=== PATIENT | female | born 1995 | race African-American/Black ===

== ENCOUNTER 2017-12-17 11:55 | Emergency (ER) | payer SELFPAY ==
[~2017-12-17] VITALS: Ht 160 cm; Wt 77.1 kg
[2017-12-17 12:00] VITALS: BP 111/70
[2017-12-17 12:29] LABS: Urine Bacteria FEW /hpf (None Seen); Urine Blood Negative /uL (Negative); Urine Mucus FEW (None Seen); Urine Specific Gravity 1.022 (1.001-1.035); Urine WBC 1 /hpf (0 - 5)
[2017-12-17 13:06] LABS: Basophils # (auto) 0 uL; Basophils % (auto) 0.8 % (0.0-2.0); Eosinophils # (auto) 0 uL; Eosinophils % (auto) 0.1 % (0.0-7.0); Hematocrit 38.7 % (36.0-46.0); Hemoglobin 12.6 g/dL (12.2-16.2); Lymphocytes # (auto) 0.8 uL; Lymphocytes % (auto) 16.6 % (10.0-50.0); Mean Corpuscular Hemoglobin 27.7 pg (28.0-32.0); Mean Corpuscular Hgb Conc. 32.4 g/dL (32.0-36.0); Mean Corpuscular Volume 85.4 fL (80.0-100.0); Monocytes # (auto) 0.2 uL; Monocytes % (auto) 4.6 % (0.0-12.0); Neutrophils # (auto) 3.9 uL; Neutrophils % (auto) 77.9 % (37.0-80.0); Nucleated Red Blood Cells % 0.1 %; Platelet Count (auto) 263 10^3/uL (140-450); Red Blood Cells 4.53 10^6/uL (4.0-5.20); Red Cell Distribution Width 16.5 % (11.8-14.3)
[2017-12-17 13:27] LABS: Albumin 3.8 g/dL (3.4-5.0); BUN/Creatinine Ratio 7.4; Calcium 8.8 mg/dL (8.5-10.1); Potassium 4.2 mmol/L (3.5-5.1)
[2017-12-17 13:29] LABS: Bilirubin, Total 0.5 mg/dL (0.2-1.0); Total Protein 8.3 g/dL (6.4-8.2)
== END 2017-12-17 16:43 | disposition left against medical advice (07) ==
LOC: ER 11:55
DX: R10.13 Epigastric pain (principal); Z53.29 Procedure and treatment not carried out because of patient's decision for other reasons
CPT/HCPCS: 36415; 80053; 81001; 81025; 85025

== ENCOUNTER 2018-01-16 20:25 | Emergency (ER) | payer SELFPAY ==
[~2018-01-16] VITALS: Ht 160 cm; Wt 77.1 kg
[2018-01-16 21:44] LABS: Basophils # (auto) 0 uL; Basophils % (auto) 0.7 % (0.0-2.0); Eosinophils # (auto) 0 uL; Eosinophils % (auto) 0.7 % (0.0-7.0); Hematocrit 39.1 % (36.0-46.0); Hemoglobin 13.1 g/dL (12.2-16.2); Lymphocytes # (auto) 1.6 uL; Lymphocytes % (auto) 23.6 % (10.0-50.0); Mean Corpuscular Hemoglobin 28.5 pg (28.0-32.0); Mean Corpuscular Hgb Conc. 33.4 g/dL (32.0-36.0); Mean Corpuscular Volume 85.4 fL (80.0-100.0); Monocytes # (auto) 0.7 uL; Monocytes % (auto) 9.8 % (0.0-12.0); Neutrophils # (auto) 4.4 uL; Neutrophils % (auto) 65.2 % (37.0-80.0); Nucleated Red Blood Cells % 0.1 %; Platelet Count (auto) 224 10^3/uL (140-450); Red Blood Cells 4.58 10^6/uL (4.0-5.20); Red Cell Distribution Width 15.4 % (11.8-14.3); White Blood Cell 6.8 10^3/uL (4.4-10.8)
[2018-01-16 21:48] LABS: Urine Bacteria NONE SEEN /hpf (None Seen); Urine Blood Negative /uL (Negative); Urine Mucus FEW (None Seen); Urine Specific Gravity 1.036 (1.001-1.035); Urine WBC 3 /hpf (0 - 5)
[2018-01-16 21:59] LABS: Amphetamine Screen, Urine NEGATIVE (NEGATIVE); Barbiturate Scree,Urine NEGATIVE (NEGATIVE); Benzodiazephine Screen, Urine NEGATIVE (NEGATIVE); Cannabinoid Screen, Urine POSITIVE (NEGATIVE); Cocaine Screen, Urine NEGATIVE (NEGATIVE); Opiate Scree,Urine NEGATIVE (NEGATIVE); Phencyclidine Screen, Urine NEGATIVE (NEGATIVE)
[2018-01-16 22:28] LABS: Albumin 4.2 g/dL (3.4-5.0); BUN/Creatinine Ratio 17.4; Bilirubin, Total 0.7 mg/dL (0.2-1.0); Calcium 9.2 mg/dL (8.5-10.1); Magnesium 2.3 mg/dL (1.6-2.6); Potassium 3.4 mmol/L (3.5-5.1); Total Protein 8.9 g/dL (6.4-8.2)
[2018-01-16] MEDS ORDERED: ONDANSETRON HCL 4 MG/2 ML VIAL ONE (23:41)
[2018-01-17] MEDS ORDERED: SODIUM CHLORIDE 0.9% 1,000 ML IV ONE (00:30)
[2018-01-17] MEDS ORDERED: cefTRIAXone 1GM/10ml IVPUSH 10 ML IV ONE (03:00)
[2018-01-17] MEDS ORDERED: metroNIDAZOLE 500 MG TAB PO ONE (03:00)
[2018-01-17 03:08] VITALS: BP 109/60
== END 2018-01-17 03:10 | disposition home or self-care (01) ==
LOC: ER 20:25
DX: K52.9 Noninfective gastroenteritis and colitis, unspecified (principal); F17.210 Nicotine dependence, cigarettes, uncomplicated
CPT/HCPCS: 36415; 74176; 80053; 80307; 81001; 81025; 83690; 83735; 85025; 99285; J2405; J7030

== ENCOUNTER 2019-05-02 12:47 | Emergency (ER) | payer SELFPAY ==
[~2019-05-02] VITALS: Ht 160 cm; Wt 68.0 kg
[2019-05-02 12:57] VITALS: BP 123/75
== END 2019-05-02 15:06 | disposition left against medical advice (07) ==
LOC: ER 12:47
DX: R11.10 Vomiting, unspecified (principal); R19.7 Diarrhea, unspecified; Z53.21 Procedure and treatment not carried out due to patient leaving prior to being seen by health care provider

== ENCOUNTER 2019-05-03 14:07 | Emergency (ER) | payer SELFPAY ==
[~2019-05-03] VITALS: Ht 160 cm; Wt 68.0 kg
[2019-05-03 15:49] LABS: Basophils # (auto) 0 uL; Basophils % (auto) 0.7 % (0.0-2.0); Eosinophils # (auto) 0 uL; Eosinophils % (auto) 0.5 % (0.0-7.0); Hematocrit 39.8 % (36.0-46.0); Hemoglobin 13.4 g/dL (12.2-16.2); Lymphocytes # (auto) 1.1 uL; Mean Corpuscular Hemoglobin 29.9 pg (28.0-32.0); Mean Corpuscular Hgb Conc. 33.6 g/dL (32.0-36.0); Mean Corpuscular Volume 88.8 fL (80.0-100.0); Monocytes # (auto) 0.2 uL; Neutrophils # (auto) 1.2 uL; Neutrophils % (auto) 46.8 % (37.0-80.0); Nucleated Red Blood Cells % 0.1 %; Platelet Count (auto) 173 10^3/uL (140-450); Red Blood Cells 4.48 10^6/uL (4.0-5.20); Red Cell Distribution Width 14.9 % (11.8-14.3); White Blood Cell 2.7 10^3/uL (4.4-10.8)
[2019-05-03 15:51] LABS: Urine Bacteria NONE SEEN /hpf (None Seen); Urine Blood 2+ /uL (Negative); Urine Mucus MODERATE (None Seen); Urine Specific Gravity 1.025 (1.001-1.035); Urine WBC 3 /hpf (0 - 5)
[2019-05-03 16:04] LABS: Albumin 3.8 g/dL (3.4-5.0); BUN/Creatinine Ratio 13.5; Calcium 8.8 mg/dL (8.5-10.1); Potassium 3.4 mmol/L (3.5-5.1)
[2019-05-03 16:07] LABS: Bilirubin, Total 0.5 mg/dL (0.2-1.0); Total Protein 7.9 g/dL (6.4-8.2)
[2019-05-03] MEDS ORDERED: ONDANSETRON ODT 4 MG TAB PO ONE ×2 (17:23→17:30)
[2019-05-03 17:33] VITALS: BP 118/67
== END 2019-05-03 18:15 | disposition home or self-care (01) ==
LOC: ER 14:07
DX: A08.4 Viral intestinal infection, unspecified (principal); F17.210 Nicotine dependence, cigarettes, uncomplicated
CPT/HCPCS: 36415; 74176; 80053; 81001; 81025; 83690; 85025; 99284; Q0162

== ENCOUNTER 2020-11-23 14:49 | Emergency (ER) | payer MEDICAID, OTHER ==
[~2020-11-23] VITALS: Ht 160 cm; Wt 69.4 kg
[2020-11-23 16:36] VITALS: BP 111/67
[2020-11-23] MEDS ORDERED: IBUPROFEN 800 MG TAB PO ONE (16:45)
== END 2020-11-23 17:00 | disposition home or self-care (01) ==
LOC: ER 14:49
DX: S16.1XXA Strain of muscle, fascia and tendon at neck level, initial encounter (principal); S00.83XA Contusion of other part of head, initial encounter; F17.210 Nicotine dependence, cigarettes, uncomplicated; V43.62XA Car passenger injured in collision with other type car in traffic accident, initial encounter; Y93.89 Activity, other specified; Y92.488 Other paved roadways as the place of occurrence of the external cause; Y99.8 Other external cause status

== ENCOUNTER 2023-04-30 15:28 | Inpatient (IN) | payer MEDICAID, OTHER ==
[~2023-04-30] VITALS: Ht 160 cm; Wt 59.1 kg
[2023-04-30 16:34] LABS: Hematocrit 42.2 % (36.0-46.0); Hemoglobin 14.4 g/dL (12.2-16.2); Mean Corpuscular Hemoglobin 31.2 pg (28.0-32.0); Mean Corpuscular Hgb Conc. 34.2 g/dL (32.0-36.0); Mean Corpuscular Volume 91.4 fL (80.0-100.0); Red Blood Cells 4.62 10^6/uL (4.0-5.20); Red Cell Distribution Width 13.3 % (11.8-14.3)
[2023-04-30 16:51] LABS: Alanine Aminotransferase 30 U/L (7-40); Alkaline Phosphatase 97 U/L (46-116); Anion Gap 12 (5-15); Aspartate Aminotransferase 45 U/L (13-40); BUN/Creatinine Ratio 10.1 (10.0-20.0); Bilirubin, Total 0.5 mg/dL (0.2-1.0); Blood Urea Nitrogen 9 mg/dL (9-23); Calcium 9.5 mg/dL (8.7-10.4); Carbon Dioxide 26 mmol/L (20-30); Chloride 98 mmol/L (98-107); Glucose 86 mg/dL (74-106); Lipase 37 U/L (12-53); Potassium 3.1 mmol/L (3.5-5.1); Sodium 136 mmol/L (136-145); Total Protein 8.5 g/dL (5.7-8.2)
[2023-04-30 16:55] LABS: White Blood Cell 1.7 10^3/uL (4.4-10.8)
[2023-04-30 16:59] LABS: Band Neutrophils % (manual) 0; Basophils % (manual) 0 (0.0-2.0); Blast Cells 0; Eosinophils % (manual) 0 (0-7); Metamyelocytes % 0; Myelocytes % 0; Promyelocytes % 0; Reactive Lymphocytes 0
[2023-04-30 17:22] LABS: Lymphocytes % (manual) 23 (10.0-50.0); Monocytes % (manual) 10 (0-12)
[2023-04-30 17:23] LABS: Platelet Estimate Decreased
[2023-04-30 18:21] LABS: Rapid Influenza A Negative (Negative); Rapid Influenza B Negative (Negative)
[2023-04-30 18:22] LABS: COVID19 ANTIGEN SOFIA FIA NEGATIVE (NEGATIVE)
[2023-04-30 19:27] LABS: Urine Bacteria NONE SEEN /hpf (None Seen); Urine Blood 3+ /uL (Negative); Urine Clarity HAZY (Clear); Urine Mucus FEW (None Seen); Urine Protein, UAD 2+ (Negative); Urine Specific Gravity 1.024 (1.001-1.035); Urine WBC 118 /hpf (0 - 5)
[2023-04-30 19:31] LABS: Urine Color BROWN (Yellow)
[2023-04-30] MEDS ORDERED: ACETAMINOPHEN 325 MG TAB PO PRN (21:15)
[2023-04-30] MEDS ORDERED: POTASSIUM CHL 20 Meq TABLET PO ONE (21:15)
[2023-04-30] MEDS ORDERED: ONDANSETRON HCL 4 MG/2 ML VIAL IV PRN (21:15)
[2023-04-30] MEDS ORDERED: TEMAZEPAM 15 MG CAP PO PRN (21:15)
[2023-04-30] MEDS ORDERED: cefTRIAXone 1GM/50ML D5W 50 ML IV ONE (21:15)
[2023-05-01] VITALS (10 sets, daily range): BP systolic 94–157; BP diastolic 57–98; PULSE 77–95; RESP 16–22; TEMP 97.7–99.2; O2SAT 94–99
[2023-05-01] MEDS ORDERED: HYDROcodone-ACET 5/325MG TAB PO ONE (02:45)
[2023-05-01] MEDS ORDERED: ALBUTEROL SULF 2.5 MG/0.5ML(0.5%) NEB SOLN NEB PRN (06:45)
[2023-05-01 07:07] LABS: Red Cell Distribution Width 13.2 % (11.8-14.3)
[2023-05-01 07:11] LABS: Hematocrit 37.2 % (36.0-46.0); Hemoglobin 12.7 g/dL (12.2-16.2); Mean Corpuscular Hemoglobin 31.1 pg (28.0-32.0); Mean Corpuscular Hgb Conc. 34.2 g/dL (32.0-36.0); Mean Corpuscular Volume 90.8 fL (80.0-100.0)
[2023-05-01 07:22] LABS: White Blood Cell 1.9 10^3/uL (4.4-10.8)
[2023-05-01 07:23] LABS: Basophils % (manual) 0 (0.0-2.0); Blast Cells 0; Eosinophils % (manual) 0 (0-7); Metamyelocytes % 0; Myelocytes % 0; Promyelocytes % 0; Reactive Lymphocytes 0
[2023-05-01 07:31] LABS: Chloride 99 mmol/L (98-107); Potassium 3.3 mmol/L (3.5-5.1); Sodium 135 mmol/L (136-145)
[2023-05-01 07:32] LABS: Anion Gap 12 (5-15); Calcium 9.1 mg/dL (8.5-10.1); Carbon Dioxide 24 mmol/L (20-30)
[2023-05-01 07:37] LABS: BUN/Creatinine Ratio 13.9 (10.0-20.0); Blood Urea Nitrogen 10 mg/dL (9-23); Glucose 78 mg/dL (74-106)
[2023-05-01 09:26] LABS: Thyroid Stimulating Hormone 1.54 uIU/mL (0.55-4.78)
[2023-05-01 10:12] LABS: Band Neutrophils % (manual) 3; Lymphocytes % (manual) 32 (10.0-50.0); Monocytes % (manual) 14 (0-12)
[2023-05-01 10:13] LABS: Platelet Estimate Decreased
[2023-05-01] MEDS: cefTRIAXone 1GM/50ML D5W 50 ML IV SCH (10:24)
[2023-05-01] MEDS ORDERED: POTASSIUM EFFERVESENT TAB 25 MEQ PO ONE (12:00)
[2023-05-01] MEDS ORDERED: DOXYCYCLINE 100 MG TAB/CAP PO ONE (13:15)
[2023-05-01] MEDS: guaiFENesin-DM 100/10mg/5ml SYR PO PRN ×2 (18:46→22:32)
[2023-05-01] MEDS ORDERED: DOXYCYCLINE 100 MG TAB/CAP PO SCH (22:00)
[2023-05-02 05:00] VITALS: BP 105/65; PULSE 75; RESP 16; TEMP 98.5; O2SAT 98
[2023-05-02 06:23] LABS: Mean Corpuscular Volume 91.1 fL (80.0-100.0)
[2023-05-02 06:25] LABS: Alanine Aminotransferase 24 U/L (7-40); Albumin 4.2 g/dL (3.2-4.8); Alkaline Phosphatase 76 U/L (46-116); Anion Gap 9 (5-15); Aspartate Aminotransferase 33 U/L (13-40); BUN/Creatinine Ratio 9.4 (10.0-20.0); Blood Urea Nitrogen 6 mg/dL (9-23); CRP High Sensitivity 0.61 mg/dL (<1.0); Calcium 8.8 mg/dL (8.5-10.1); Carbon Dioxide 27 mmol/L (20-30); Chloride 101 mmol/L (98-107); Glucose 85 mg/dL (74-106); Hematocrit 36.6 % (36.0-46.0); Hemoglobin 12.3 g/dL (12.2-16.2); Mean Corpuscular Hemoglobin 30.7 pg (28.0-32.0); Mean Corpuscular Hgb Conc. 33.7 g/dL (32.0-36.0); Potassium 2.9 mmol/L (3.5-5.1); Red Blood Cells 4.02 10^6/uL (4.0-5.20); Red Cell Distribution Width 13.1 % (11.8-14.3); Sodium 137 mmol/L (136-145)
[2023-05-02 06:26] LABS: Bilirubin, Total 0.4 mg/dL (0.2-1.0); Total Protein 6.9 g/dL (5.7-8.2)
[2023-05-02 06:53] LABS: White Blood Cell 1.6 10^3/uL (4.4-10.8)
[2023-05-02 06:54] LABS: Basophils % (manual) 0 (0.0-2.0); Blast Cells 0; Eosinophils % (manual) 0 (0-7); Metamyelocytes % 0; Myelocytes % 0; Promyelocytes % 0
[2023-05-02] MEDS ORDERED: POTASSIUM CHLORIDE 60 MEQ, LIDOCAINE 1% (LOCAL ANESTH.) 6 ML in SODIUM CHL 0.9% 500 ML IV ONE (07:00)
[2023-05-02 08:00] VITALS: PULSE 78; RESP 18; O2SAT 98
[2023-05-02 08:00] LABS: Magnesium 2.3 mg/dL (1.6-2.6)
[2023-05-02] MEDS: guaiFENesin-DM 100/10mg/5ml SYR PO PRN ×2 (08:43→13:28)
[2023-05-02] MEDS: cefTRIAXone 1GM/50ML D5W 50 ML IV SCH (08:43)
[2023-05-02 08:51] VITALS: BP 106/59; PULSE 78; RESP 18; TEMP 98.5; O2SAT 98
[2023-05-02 08:57] LABS: Band Neutrophils % (manual) 1; Lymphocytes % (manual) 61 (10.0-50.0); Monocytes % (manual) 25 (0-12); Reactive Lymphocytes 2
[2023-05-02 08:58] LABS: Platelet Estimate Decreased; RBC Morphology Normal
[2023-05-02 09:21] LABS: Hepatitis B Surface Antibody Negative (Negative)
[2023-05-02 09:27] LABS: Hepatitis B Surface Antigen Negative (Negative)
[2023-05-02 09:28] LABS: Hepatitis B Surface Antigen Negative (Negative)
[2023-05-02 09:48] LABS: Hepatitis C Antibody Negative (Negative)
[2023-05-02 12:54] VITALS: BP 109/73; PULSE 78; RESP 20; TEMP 98.2; O2SAT 100
[2023-05-02 14:06] LABS: Anti-Nuclear Antibody Direct Negative (Negative)
[2023-05-02 15:07] VITALS: BP 106/59; PULSE 78; RESP 18; TEMP 36.8; O2SAT 98
[2023-05-02 16:53] VITALS: BP 110/72; PULSE 92; RESP 18; TEMP 98.4; O2SAT 97
[2023-05-03 18:06] LABS: CCP IgG/IgA Antibody 0 units (0-19)
== END 2023-05-02 16:23 | disposition home or self-care (01) | DRG 145 ==
LOC: ER 15:28 → OVERFLOW 21:16 → EAST 05-01 02:15
PROVIDERS: ADMIT Internal Medicine Pulmonary Disease; ATTEND Internal Medicine Pulmonary Disease
DX: J40 Bronchitis, not specified as acute or chronic (principal); D69.6 Thrombocytopenia, unspecified; B34.9 Viral infection, unspecified; D70.9 Neutropenia, unspecified; Z20.822 Contact with and (suspected) exposure to COVID-19; E87.6 Hypokalemia; F17.210 Nicotine dependence, cigarettes, uncomplicated; Z82.49 Family history of ischemic heart disease and other diseases of the circulatory system; Z83.3 Family history of diabetes mellitus; N30.00 Acute cystitis without hematuria
CPT/HCPCS: 36415; 71045; 80048; 80053; 81001; 81025; 82607; 82746; 83605; 83615; 83690; 83735; 84132; 84436; 84443; 85007; 85027; 86038; 86141; 86200; 86703; 86706; 86803; 87040; 87070; 87086; 87205; 87340; 87426; 87804; G0378; J2001; J2405

== ENCOUNTER 2024-12-25 12:36 | Emergency (ER) | payer MEDICAID ==
[~2024-12-25] VITALS: Ht 162.6 cm; Wt 63.0 kg
[~2024-12-25 12:36] MED LIST: AZITTAB PO; BUDE1AER15 IN; METH4PAK PO
[2024-12-25] MEDS ORDERED: IBUP-1456 PO (13:07)
[2024-12-25 13:22] VITALS: BP 121/63; PULSE 95; RESP 20; TEMP 98.4; O2SAT 98
--- NOTE | 2024-12-25 13:23 | ED.PDOC ---
Musculoskeletal HPI Comments A 29 YEAR OLD FEMALE PRESENTS TO THE ED WITH COMPLAINT OF LEFT ANKLE PAIN. PATIENT REPORTS CONFIRMED LEFT FIBULA FRACTURE BY X RAY DONE IN [place] S/P BROTHER IN LAW FALLING ONTO HER LEFT ANKLE ON 11/19/24. PATIENT REPORTS SHE WAS PLACED ON A BOOT AND RX NAPROXEN WITH AFTER CARE INSTRUCTIONS SUCH ELEVATING LEG TO REDUCE PAIN, HOWEVER SHE DENIES ANY RELIEF. PATIENT HAS AN ORTHOPEDIC APPOINTMENT ON 12/30/24 BUT PRESENTS TODAY DUE TO CONCERNS OF BRUISING TO THE INNER LEFT HEEL. PATIENT HAS NO REDNESS TO FRACTURE REGION. 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 PATIENT WILL FOLLOW UP WITH ORTHOPEDIC ON APPOINTED DATE TO EXTEND WORK NOTE. PATIENT DENIES FEVER, CHILLS, SHORTNESS OF BREATH, CHEST PAIN, ABDOMINAL PAIN, NAUSEA, VOMITING, HEADACHE, OR OTHER COMPLAINTS. NO OTHER SYMPTOMS OR MODIFYING FACTORS AT THIS TIME. PATIENT IS ALERT, ORIENTED X 4, AND HAS STEADY GAIT- HAS A BOOT PLACED TO LEFT LOWER LEG AND IS ABLE TO APPLY MINIMAL PRESSURE TO FOOT. Chief Complaint: Lower Extremity Time Seen by MD: 13:00 Primary Care Provider: DENIES Reviewed Notes: Nurses Notes, Medications, Allergies Allergies: Coded Allergies: NO KNOWN ALLERGIES (Unverified , 05/03/19) Home Meds Active Scripts Ibuprofen (Ibuprofen) 800 Mg Tab, 1 TAB PO TID, #30 TAB Prov:HA MCKEON 12/25/24 Azithromycin (Zithromax Z-Dick) 250 Mg Tab, 250 MG PO BID for 7 Days, #14 TAB Prov:ALEXANDRIA LOMELI 10/21/23 Methylprednisolone (Medrol Dosepak) 4 Mg Dick, 4 MG PO UD, #21 TAB UAD Prov:JAGJIT MARTINES ASSISTANT MANAGER 10/21/23 Budesonide-Formoterol Fumarate (Breyna 80-4.5 Mcg/Act) 1 Aer Aer, 1 AER IN BID for 30 Days, #1 AER Prov:JAGJIT MARTINES ASSISTANT MANAGER 10/21/23 Information Source: Patient Mode of Arrival: Ambulatory Location: Left Extremity Location: Ankle Timing: Weeks Severity: Moderate Mechanism: Blunt Trauma Onset of Symptoms: After Trauma Symptoms: Pain Associated signs and symptoms: Ankle pain Past Medical History PAST MEDICAL HISTORY: Denies Surgical History: Denies all surgeries EXPORT SALES ASSISTANT History: Denies all EXPORT SALES ASSISTANT Hx Family History Family History: Reviewed,noncontributory to illness Social History Smoker: Cigarettes Alcohol: Denies ETOH Use Drugs: Denies Drug Use Lives In: Home Constitutional: denies: chills, diaphoresis, fatigue, fever, malaise, sweats, weakness, others EENTM: denies: blurred vision, double vision, ear bleeding, ear discharge, ear drainage, ear pain, ear ringing, eye pain, eye redness, hearing loss, mouth pain, mouth swelling, nasal discharge, nose bleeding, nose congestion, nose pain, photophobia, tearing, throat pain, throat swelling, voice changes, others Respiratory: denies: cough, hemoptysis, orthopnea, SOB at rest, shortness of breath, SOB with excertion, stridor, wheezing, others Cardiovascular: denies: chest pain, dizzy spells, diaphoresis, Dyspnea on exertion, edema, irregular heart beat, left arm pain, lightheadedness, palpitations, PND, syncope, others Gastrointestinal: denies: abdomen distended, abdominal pain, blood streaked bowels, constipated, diarrhea, dysphagia, difficulty swallowing, hematemesis, melena, nausea, poor appetite, poor fluid intake, rectal bleeding, rectal pain, vomiting, others Genitourinary: denies: abnormal vagina bleeding, burning, dyspareunia, dysuria, flank pain, frequency, hematuria, incontinence, pain, , vagina discharge, urgency, others Neurological: denies: dizziness, fainting, headache, left sided numbness, left sided weakness, numbness, paresthesia, pre-existing deficit, right sided numbness, right sided weakness, seizure, speech problems, tingling, tremors, weakness, others Musculoskeletal: reports: joint pain, others (LEFT ANKLE PAIN WITH SWELLING ); denies: back pain, gout, joint swelling, muscle pain, muscle stiffness, neck pain Integumetry: denies: bruises, change in color, change in hair/nails, dryness, laceration, lesions, lumps, rash, wounds, others Allergic/Immunocompromised: denies: Difficulty Healing, Frequent Infections, Hives, Itching, others Hematologic/Lymphatic: denies: anemia, blood clots, easy bleeding, easy bruising, swollen glands, others Endocrine: denies: excessive hunger, excessive sweating, excessive thirst, excessive urination, flushing, intolerance to cold, intolerance to heat, unexplained weight gain, unexplained weight loss, others Psychiatric: denies: anxiety, bipolar disorder, depression, hopeless, panic disorder, schizophrenia, sleepless, suicidal, others All Other Systems: Reviewed and Negative Physical Exam General Appearance: No Apparent Distress, Normal HEENT: Normal ENT Inspection, PERRL/EOMI, Pharynx Normal, TMs Normal Neck: Full Range of Motion, Non-Tender, Normal, Normal Inspection Respiratory: Chest Non-Tender, Lungs Clear, No Accessory Muscle Use, No Respiratory Distress, Normal Breath Sounds Cardiovascular: No Edema, No JVD, No Murmur, No Gallop, Normal Peripheral Pulses, Regular Rate/Rhythm Breast Exam: Deferred Gastrointestinal: No Organomegaly, Non Tender, No Pulsatile Mass, Normal Bowel Sounds, Soft Genitalia: Deferred Pelvic: Deferred Rectal: Deferred Extremities: No calf tenderness, Normal capillary refill, Normal range of motion, No pedal edema, Tender (WITH MILD SWELLING ON LEFT LATERAL ANKLE, NO DEFORMITY, MILD CONTUSION ON LEFT HEEL REGION. SHORT LEG BOOT ON LEFT LOWER LEG. ) Musculoskeletal : Apperance: Normal Neurologic: Alert, [employer] [place] II-XII nml as Tested, No Motor Deficits, Normal Affect, Normal Mood, No Sensory Deficits Cerebellar Function: Normal Reflexes: Normal Skin: Bruises (LEFT HEEL REGION, NO BONY TENDERNESS AND SWELLING. ), Dry, Normal Color, Warm Peripheral Pulses: 2+ carotid (R), 2+ carotid (L), 2+ dorsalis pedis (R), 2+ dorsalis pedis (L) Lymphatic: No Adenopathy Was a procedure done? Was a procedure done?: No Differential Diagnosis EXT Differential Diagnosis: Deep Vein Thrombosis, Fracture, Strain, Neurovascular injury, Bursitis X-Ray, Labs, Meds, VS Vital Signs Date Time Temp Pulse Resp B/P (MAP) Pulse Ox O2 Delivery O2 Flow Rate FiO2 12/25/24 13:22 95 20 98 Room Air 12/25/24 13:22 98.4 95 20 121/63 (82) 98 98.4 12/25/24 12:37 98.4 95 20 121/63 98 98.4 X-Ray, Labs, Meds, VS Comment EXTERNAL MEDICAL RECORDS REVIEWED: [NONE] INDEPENDENT HISTORIANS: [NONE] SOCIAL DETERMINANTS OF HEALTH: [NONE] LABS ORDERED: NONE REVIEWED AND INTERPRETED RESULTS: NONE IMAGING ORDERED: NONE TREATMENTS ORDERED: PROCEDURES PERFORMED: NONE CRITICAL CARE TIME: NONE I HAVE DISCUSSED THE PATIENT WITH THE ATTENDING PHYSICIAN [PHYSICIAN'S NAME] AND HE AGREES WITH THE PATIENT'S PLAN OF CARE AND DISPOSITION. BASED ON HISTORY OF PRESENT ILLNESS, AND PHYSICAL EXAM, PATIENT WILL BE DISCHARGED HOME. DISCUSSED PLAN FOR DISCHARGE HOME WITH RX MOTRIN 800MG SINCE NAPROXEN 10MG DOES NOT RELIEF PATIENT'S PAIN. MEDICATION WARNINGS GIVEN. SHARED DECISION MAKING: DISCUSSED WITH PATIENT THAT THEIR WORKUP WAS NORMAL. PATIENT INSTRUCTED TO FOLLOW UP WITH PRIMARY CARE PROVIDER IN 1-2 DAYS FOR RE- EVALUATION OF SYMPTOMS. PATIENT VERBALIZES UNDERSTANDING TO RETURN TO ED FOR NEW OR WORSENING SYMPTOMS OR IF FOLLOW UP WITH PCP CANNOT BE OBTAINED. PATIENT FEELS COMFORTABLE GOING HOME AT THIS TIME. ALL QUESTIONS ADDRESSED AT TIME OF DISCHARGE. Time of 1ST Reevaluation: 13:35 Reevaluation 1ST: Improved Patient Education/Counseling: Diagnosis, Treatment, Prognosis Family Education/Counseling: Diagnosis, Treatment, Need For Follow Up Medical Screening: No EMC Exist At This Time Departure 1 Departure Time of Disposition: 13:35 Impression: Primary Impression: Left lateral ankle pain Additional Impression: Closed left fibular fracture Qualified Codes: S82.832D - Other fracture of upper and lower end of left fibula, subsequent encounter for closed fracture with routine healing Disposition: 01 HOME / SELF CARE / HOMELESS Condition: Stable Additional Instructions: FOLLOW-UP WITH PCP IN 1 TO 2 DAYS AND ORTHOPEDIC. TAKE MEDICATIONS PRESCRIBED. RETURN TO ED FOR ANY NEW OR WORSENING SYMPTOMS. e-Prescriptions Ibuprofen (Ibuprofen) 800 Mg Tab 1 TAB PO TID, #30 TAB Prov: HA MCKEON 12/25/24 Discharged With: Self, Relative Critical Care Note Critical Care Time?: No Stability Stability form required: No I personally scribed for HA MCKEON ([id number]) on 12/25/24 at 13:23. Electronically submitted by Eliana Booth ([email or web address]). HA MCKEON Dec 25, 2024 13:23
== END 2024-12-25 13:25 | disposition home or self-care (01) ==
LOC: ER 12:36
DX: S82.832A Other fracture of upper and lower end of left fibula, initial encounter for closed fracture (principal); M25.572 Pain in left ankle and joints of left foot; F17.210 Nicotine dependence, cigarettes, uncomplicated; Z79.1 Long term (current) use of non-steroidal anti-inflammatories (NSAID); Z79.899 Other long term (current) drug therapy; X58.XXXA Exposure to other specified factors, initial encounter; Y93.89 Activity, other specified; Y92.89 Other specified places as the place of occurrence of the external cause; Y99.8 Other external cause status